=== PATIENT | female | born 1975 ===

== ENCOUNTER 2017-04-25 08:14 | Emergency (ER) | payer OTHER ==
--- NOTE | 2017-04-25 15:20 | UC ---
Shannon Guzman Alfonso, scribed for Maria Guerrero MD on 04/25/17 at 0838 . Throat Pain/Nasal Koffi HPI - HPI Summary HPI Summary: This patient is a 41 year old F presenting to [facility] with a chief complaint of a sore throat since a few days ago. The patient rates the pain 7/10 in severity. Patient denies ear pain. She denies any recent travels. She denies any sick contacts including her child. 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 She declines mono testing after careful consideration. Patients medications reviewed this visit. Patients allergies reviewed this visit. - History of Current Complaint Chief Complaint: UCRespiratory Stated Complaint: SORE THROAT Time Seen by Provider: 04/25/17 08:22 Hx Obtained From: Patient Hx Last Menstrual Period: 04/24/17 Onset/Duration: Sudden Onset, Lasting Days - few, Still Present Severity: Moderate Pain Intensity: 7 Pain Scale Used: 0-10 Numeric Associated Signs & Symptoms: Positive: Other - Negative ear pain. - Allergies/Home Medications Allergies/Adverse Reactions: Allergies Allergy/AdvReac Type Severity Reaction Status Date / Time No Known Allergies Allergy Verified 04/25/17 08:18 PMH/Surg Hx/FS Hx/Imm Hx Previously Healthy: Yes - Surgical History Surgical History: Yes Surgery Procedure, Year, and Place: c section - Family History Known Family History: Positive: Diabetes - Social History Alcohol Use: None Substance Use Type: None Smoking Status (MU): Never Smoked Tobacco Review of Systems Constitutional: Negative ENT: Sore Throat All Other Systems Reviewed And Are Negative: Yes Physical Exam Triage Information Reviewed: Yes Appearance: Well-Nourished Vital Signs: Initial Vital Signs Temp 99 F 04/25/17 08:18 Pulse 69 04/25/17 08:18 Resp 16 04/25/17 08:18 BP 112/75 04/25/17 08:18 Pulse Ox 100 04/25/17 08:18 Vital Signs Reviewed: Yes Eye Exam: Normal ENT: Positive: Other: - Erythematous pharynx. Uvula midline and slightly edematous. Air way intact. Left TM dull and mancini. Right TM normal. Small lymph node at right submandibular. Neck exam: Normal Neck: Positive: No Lymphadenopathy Respiratory Exam: Normal Respiratory: Positive: Other: - no dyspnea, no tachypnea, normal respiratory rate Cardiovascular: Positive: RRR, Other: Abdomen Description: Positive: Nontender, No Organomegaly, Soft Bowel Sounds: Positive: Present Musculoskeletal Exam: Normal Musculoskeletal: Positive: Strength Intact Neurological Exam: Normal Neurological: Positive: Other: - nonfocal, grossly intact Psychological Exam: Normal Psychological: Positive: Age Appropriate Behavior Skin Exam: Normal Throat Pain/Nasal Course/Dx - Course Course Of Treatment: This patient is a 41 year old F presenting to [facility] with a chief complaint of a sore throat since a few days ago. The patient rates the pain 7/10 in severity. Patient denies ear pain. She denies any recent travels. She denies any sick contacts including her child. 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 She declines mono testing after careful consideration. Patients medications reviewed this visit. Patients allergies reviewed this visit. Patient will be discharged with prescription for Z-Jhonathan and Diflucan (prn vag yeast inf), and follow up from PCP. The patient is agreeable with this plan. - Differential Dx/Diagnosis Provider Diagnoses: pharyngitis Discharge - Discharge Plan Condition: Stable Disposition: HOME Prescriptions: Azithromyxin JHONATHAN (NF) [Z-Jhonathan (Zithromax) 250 mg tabs #6] 2 tab PO .TODAY, THEN 1 DAILY #6 tab Fluconazole [Diflucan 150 MG (NF)] 150 mg PO DAILY #2 tab Patient Education Materials: Pharyngitis (ED) Referrals: No Primary Care Phys,NOPCP [Primary Care Provider] - Additional Instructions: Consider mononucleosis testing if symptoms not improving or worse in the next 5 days. Drink plenty of fluids. Follow up primary care provider, per routine. The documentation as recorded by the Shannon may Alfonso accurately reflects the service I personally performed and the decisions made by me, Maria Guerrero MD.
== END 2017-04-25 09:01 | disposition home or self-care (01) ==
LOC: UCEAST 08:14
DX: J02.9 Acute pharyngitis, unspecified (principal)
CPT/HCPCS: 87651; 99202; G0463